=== PATIENT | female | born 1950 | race Caucasian/White ===

== ENCOUNTER → 2017-01-20 | Outpatient (CLI) | payer OTHER | LOC: BRMIMAGING 14:16 | DX: Z12.31 Encounter for screening mammogram for malignant neoplasm of breast (principal) | CPT/HCPCS: G0202 ==

== ENCOUNTER → 2017-01-24 | Outpatient (CLI) | payer OTHER | LOC: BRMIMAGING 08:30 | PROVIDERS: ATTEND Physician Assistant | DX: Z13.820 Encounter for screening for osteoporosis (principal); M85.80 Other specified disorders of bone density and structure, unspecified site ==

== ENCOUNTER → 2019-03-25 | Outpatient (CLI) | payer OTHER | LOC: BRMIMAGING 08:11 ==

== ENCOUNTER → 2019-03-29 | Outpatient (CLI) | payer OTHER | LOC: BRMIMAGING 09:43 ==